=== PATIENT | male | born 1960 | race Caucasian/White ===

== ENCOUNTER 2018-05-06 11:12 | Observation (INO) ==
[2018-05-06] MEDS ORDERED: 0.9 % Sodium Chloride 1,000 ML IVC ONE (11:26)
[2018-05-06] MEDS ORDERED: Ondansetron 4 MG/2 ML VIAL IVP ONE (11:26)
[2018-05-06] MEDS ORDERED: *HR* FentaNYL (PF) 100 MCG/2 ML VIAL IVP ONE (11:29)
--- NOTE | 2018-05-06 11:34 | Emergency Department Note ---
Disposition Clinical Impression: Elevated troponin, Acute kidney injury superimposed on chronic kidney disease, Splenic lesion Abdominal pain Qualifiers: Abdominal location: left lower quadrant Qualified Code(s): R10.32 - Left lower quadrant pain Disposition: Admitted As Inpatient Condition: Fair Referrals: Justina Schwartz CNP [Primary Care Provider] - Forms: ED Satisfaction Letter, Work/School Release Time of Disposition: 14:01 Abdominal Pain HPI - General Chief Complaint: ED Abdominal Pain Stated Complaint: Possible kidney stone Time Seen by Provider: 05/06/18 11:18 Source: patient Mode of arrival: ambulatory Limitations: no limitations Nursing Notes Reviewed: Yes Vital Signs Reviewed: Yes - History of Present Illness HPI Narrative: 58-year-old male with a history of CAD, hypertension, diabetes presents for evaluation of abdominal pain. Patient states he feels that he has a kidney stone. Notes left sided flank pain that started approximately 2:00 this morning. Does not radiate. States that it is worse when he lies down. Also noted some gross hematuria. Denies any dysuria. Denies any fevers. Does note episodes of nausea vomiting earlier this morning related the pain. Patient states that he did not require surgery in the past to help with a stone states he took medication to help break up the stones. Denies any change in bowels or bladder. No chest pain or short of breath. Pain Scale: 10 - Related Data Home Medications Medication Instructions Recorded Confirmed Allopurinol [Zyloprim] 300 mg PO QAM 12/13/14 04/24/15 Aspirin 325 mg PO QAM 12/13/14 04/24/15 Atorvastatin [Lipitor] 40 mg PO HS 12/13/14 04/24/15 Carvedilol [Coreg] 25 mg PO BID 12/13/14 04/24/15 Collagenase Oint [Santyl] 1 appl TP DAILY 12/13/14 04/24/15 Ergocalciferol (VITAMIN D2) 50,000 unit PO QWEEK 12/13/14 04/24/15 [Vitamin D2 (50,000 UNIT)] Insulin Glargine,Hum.rec.anlog 45 unit SQ BID 12/13/14 04/24/15 [Lantus Solostar] Insulin LISPRO [Humalog Kwikpen 20 unit SQ TIDAC 12/13/14 04/24/15 U-200] Lisinopril [Zestril] 10 mg PO QAM 12/13/14 04/24/15 Renal Vitamin [Renal Caps Softgel] 1 mg PO DAILY 04/24/15 04/24/15 Previous Rx's Medication Instructions Recorded OxyCODONE/APAP 5/325 [Percocet 1 each PO Q4HR PRN #25 tablet 02/20/15 5/325 MG] Allergies Allergy/AdvReac Type Severity Reaction Status Date / Time ceftazidime Allergy Hives Verified 12/13/14 10:30 Cephalosporins Allergy Hives Verified 12/13/14 10:30 sulfamethoxazole AdvReac poor Verified 04/24/15 11:21 [From Bactrim] kidney function trimethoprim [From Bactrim] AdvReac poor Verified 04/24/15 11:21 kidney function All systems ED: reviewed and negative except as stated. Constitutional: Denies: fever Cardiovascular: Denies: chest pain Respiratory: Denies: cough, dyspnea Gastrointestinal: Reports: abdominal pain, nausea, vomiting. Denies: diarrhea, constipation Abdominal Pain PMH - Past Medical History Medical history: Reports: arthritis, cardiomyopathy, coronary artery disease, diabetes, hyperlipidemia, hypertension, kidney stones, peripheral artery disease, renal disease, other Male Surgical History: Reports: angioplasty/stent, cataract, coronary bypass (CABG), orthopedic, other, other Psychiatric history: Reports: no psych history - Social History Smoking status: Former smoker Alcohol use: Reports: none Drug use: Reports: none Physical Exam - General Limitations: no limitations General appearance: alert, in no apparent distress, obese - Head Head exam: atraumatic, normocephalic, normal inspection - Eye Eye exam: Present: normal appearance, PERRL, EOMI - ENT ENT exam: normal exam, mucous membranes moist - Neck Neck exam: Present: normal inspection - Chest Chest inspection: Present: normal inspection - Respiratory Respiratory exam: Present: normal lung sounds bilaterally. Absent: respiratory distress - Cardiovascular Cardiovascular exam: Present: regular rate, normal rhythm. Absent: systolic murmur - Abdominal Exam Abdominal exam: Present: soft, tenderness (Left flank no overlying rash) - Extremities Exam Extremities exam: Present: normal inspection. Absent: pedal edema - Back Exam Back exam: Present: normal inspection - Neurological Exam Neurological exam: Present: alert, oriented X3, CN II-XII intact - Skin Skin exam: Present: warm, dry, intact, normal color Course Course Narrative: Patient seen and examined. Patient appears be resting comfortably. Patient does have prior history of kidney stones. Will obtain basic labs given his history of kidney disease in the past. Urinalysis. CT scan abdomen pelvis. Disposition pending. Vital Signs Temperature 97.7 F 05/06/18 11:14 Pulse Rate 82 05/06/18 11:14 Respiratory Rate 22 05/06/18 11:14 Blood Pressure 115/74 05/06/18 11:14 O2 Sat by Pulse Oximetry 98 05/06/18 11:14 Temperature 97.7 F 05/06/18 11:14 Pulse Rate 82 05/06/18 11:14 Respiratory Rate 22 05/06/18 11:14 Blood Pressure 115/74 05/06/18 11:14 O2 Sat by Pulse Oximetry 98 05/06/18 11:14 Oxygen Delivery Oxygen Delivery Room Air Abdominal Pain - MDM Narrative Medical decision making narrative: Patient presented for concerns of left-sided abdominal pain with nausea vomiting patient thought he had a kidney stone however the patient's CT scan does not reveal any evidence of stone. Given the patient's history concerns for ACS equivalent and a troponin EKG and chest x-ray will also obtain. Chest x-ray shows signs of some cardiomegaly. Patient is not any respiratory distress. Patient's troponin came back elevated with no ischemic EKG changes. Patient was given an aspirin. Patient pain was controlled and the ED. Concerns at this laila n presentation may have been ACS equivalent. Patient's kidney function is also noted to be worse than prior values. Patient is continued to produce urine and does not warrant an emergent nephrology consult. Patient will be admitted to the hospital service for continued cardiopulmonary monitoring and likely serial troponins. - Lab Data Lab results reviewed: Yes I reviewed the patient's lab results. Result diagrams: 05/06/18 11:41 05/06/18 11:41 Lab Results 05/06/18 05/06/18 05/06/18 Range/Units 11:41 11:41 11:41 WBC 9.6 (4.3-11.1) K/mcL RBC 5.37 (4.19-5.50) M/mcL Hgb 13.8 (12.9-16.9) g/dL Hct 44.0 (37.5-50.1) % MCV 81.9 L (83.0-100.0) fL MCH 25.7 L (28.0-33.3) pg MCHC 31.4 L (31.6-35.5) g/dL RDW 15.7 H (11.5-14.5) % Plt Count 157 (140-400) K/mcL MPV 11.0 (9.4-12.4) fL Immature Gran % 0.5 (0-4) % Seg Neutrophils % 73.1 % Lymphocytes % 12.3 % Monocytes % 8.5 % Eosinophils % 4.8 % Basophils % 0.8 % Neutrophils # 7.0 (1.6-8.9) K/mcL Lymphocytes # 1.2 (0.6-4.6) K/mcL Monocytes # 0.8 (0.0-1.3) K/mcL Eosinophils # 0.5 (0.0-0.6) K/mcL Basophils # 0.1 (0.0-0.2) K/mcL Sodium 139 (136-145) mEq/L Potassium 5.3 H (3.5-5.1) mEq/L Chloride 106 (98-107) mEq/L Carbon Dioxide 23 (23-29) mEq/L BUN 90 H (6-20) mg/dL Creatinine 3.04 H (0.70-1.30) mg/dL Est GFR ( Amer) 26 L (> 60) Est GFR (Non-Af Amer) 21 L (> 60) BUN/Creatinine Ratio 30 H (6-26) Glucose 172 H (70-105) mg/dL Calculated Osmolality 320 H (280-300) Calcium 9.3 (8.6-10.3) mg/dL Total Bilirubin 0.5 (0.3-1.0) mg/dL Direct Bilirubin 0.1 (0.0-0.2) mg/dL Indirect Bilirubin 0.4 (0.0-1.2) mg/dL AST 11 L (13-39) Units/L ALT 13 (7-52) Units/L Alkaline Phosphatase 100 (34-104) Units/L Troponin I 0.05 H* (< 0.04) ng/mL B-Natriuretic Peptide 316 H (Less than 100) pg/mL Serum Total Protein 6.5 (6.4-8.9) g/dL Albumin 3.5 (3.5-5.7) g/dL Globulin 3.0 (2.4-3.5) g/dL Albumin/Globulin Ratio 1.2 (1.1-2.2) Lipase 45 (11-82) Units/L Urine Color (Yellow) Urine Clarity (Clear) Urine pH (5.0-8.0) pH Units Ur Specific [place] (1.010-1.025) Urine Protein (Neg-Trace) mg/dL Urine Glucose (UA) (Normal) mg/dL Urine Ketones (Negative) mg/dL Urine Blood (Negative) Urine Nitrite (Negative) Urine Bilirubin (Negative) Urine Urobilinogen (Normal) mg/dL Ur Leukocyte Esterase (Negative) Urine Microscopic RBC (0-3) per hpf Urine Microscopic WBC (0-3) per hpf Ur Squamous Epith Cells (None-Few) per lpf Urine Bacteria (None-Few) per hpf Hyaline Casts (None-Few) per lpf Ur Culture Indicated? (NO) 05/06/18 Range/Units 11:53 WBC (4.3-11.1) K/mcL RBC (4.19-5.50) M/mcL Hgb (12.9-16.9) g/dL Hct (37.5-50.1) % MCV (83.0-100.0) fL MCH (28.0-33.3) pg MCHC (31.6-35.5) g/dL RDW (11.5-14.5) % Plt Count (140-400) K/mcL MPV (9.4-12.4) fL Immature Gran % (0-4) % Seg Neutrophils % % Lymphocytes % % Monocytes % % Eosinophils % % Basophils % % Neutrophils # (1.6-8.9) K/mcL Lymphocytes # (0.6-4.6) K/mcL Monocytes # (0.0-1.3) K/mcL Eosinophils # (0.0-0.6) K/mcL Basophils # (0.0-0.2) K/mcL Sodium (136-145) mEq/L Potassium (3.5-5.1) mEq/L Chloride (98-107) mEq/L Carbon Dioxide (23-29) mEq/L BUN (6-20) mg/dL Creatinine (0.70-1.30) mg/dL Est GFR ( Amer) (> 60) Est GFR (Non-Af Amer) (> 60) BUN/Creatinine Ratio (6-26) Glucose (70-105) mg/dL Calculated Osmolality (280-300) Calcium (8.6-10.3) mg/dL Total Bilirubin (0.3-1.0) mg/dL Direct Bilirubin (0.0-0.2) mg/dL Indirect Bilirubin (0.0-1.2) mg/dL AST (13-39) Units/L ALT (7-52) Units/L Alkaline Phosphatase (34-104) Units/L Troponin I (< 0.04) ng/mL B-Natriuretic Peptide (Less than 100) pg/mL Serum Total Protein (6.4-8.9) g/dL Albumin (3.5-5.7) g/dL Globulin (2.4-3.5) g/dL Albumin/Globulin Ratio (1.1-2.2) Lipase (11-82) Units/L Urine Color Yellow (Yellow) Urine Clarity Clear (Clear) Urine pH 5.5 (5.0-8.0) pH Units Ur Specific [place] 1.015 (1.010-1.025) Urine Protein >=300 H (Neg-Trace) mg/dL Urine Glucose (UA) 250 H (Normal) mg/dL Urine Ketones Negative (Negative) mg/dL Urine Blood Trace H (Negative) Urine Nitrite Negative (Negative) Urine Bilirubin Negative (Negative) Urine Urobilinogen Normal (Normal) mg/dL Ur Leukocyte Esterase Negative (Negative) Urine Microscopic RBC 3-5 H (0-3) per hpf Urine Microscopic WBC 3-5 H (0-3) per hpf Ur Squamous Epith Cells Moderate H (None-Few) per lpf Urine Bacteria None Seen (None-Few) per hpf Hyaline Casts None Seen (None-Few) per lpf Ur Culture Indicated? NO (NO) - Radiology Data Radiology results reviewed: Yes I reviewed the patient's radiology results. Abdomen/Pelvis CT 05/06/18 11:28 IMPRESSION: 1. 4.7 cm indeterminate splenic lesion. Recommend further evaluation with nonemergent MRI of the abdomen with and without contrast. D/ / Hayder Holloway MD / Hayder Holloway MD Interpreting Provider: Hayder Holloway MD Chest X-Ray 05/06/18 12:35 IMPRESSION: 1. No acute abnormality. D/ / Hayder Holloway MD / Hayder Holloway MD Interpreting Provider: Hayder Holloway MD - EKG Data EKG attestation: Yes I reviewed and interpreted this EKG. EKG shows normal: sinus rhythm Rate: normal Rhythm: NSR [place]/QRS: normal T wave inversions noted in: aVL, aVR Interpretation: no acute changes, nonspecific ST-T wave changes S.Michael - S.TyAAmrit Situation: Demographics Background: Presenting Complaint Assessment: Vital Signs, Course and respsone to treatment, Patient/Family Expectation Recommendation: Barrier(s) to disposition, Recommendation based on pending studies, treatments, or consults S.B.A.RChanell Report Given to: Hospitalist Cary Repor Time: 13:59
[2018-05-06 11:59] LABS: Basophils # 0.1 K/mcL (0.0-0.2); Basophils % 0.8 %; Eosinophils # 0.5 K/mcL (0.0-0.6); Eosinophils % 4.8 %; Hemoglobin 13.8 g/dL (12.9-16.9); Immature Granulocytes % 0.5 % (0-4); Lymphocytes # 1.2 K/mcL (0.6-4.6); Lymphocytes % 12.3 %; Mean Corpuscular HGB Conc 31.4 g/dL (31.6-35.5); Mean Corpuscular Hemoglobin 25.7 pg (28.0-33.3); Mean Corpuscular Volume 81.9 fL (83.0-100.0); Monocytes # 0.8 K/mcL (0.0-1.3); Monocytes % 8.5 %; Platelet Count 157 K/mcL (140-400); Red Blood Count 5.37 M/mcL (4.19-5.50); Red Cell Distribution Width 15.7 % (11.5-14.5); Segmented Neutrophils % 73.1 %
[2018-05-06 12:17] LABS: Albumin 3.5 g/dL (3.5-5.7); Albumin/Globulin Ratio 1.2 (1.1-2.2); Bilirubin,Direct 0.1 mg/dL (0.0-0.2); Bilirubin,Indirect 0.4 mg/dL (0.0-1.2); Bilirubin,Total 0.5 mg/dL (0.3-1.0); Calcium 9.3 mg/dL (8.6-10.3); Potassium 5.3 mEq/L (3.5-5.1); Total Protein 6.5 g/dL (6.4-8.9)
[2018-05-06] MEDS ORDERED: Aspirin 325 MG TABLET PO ONE (12:23)
[2018-05-06 12:27] LABS: Bilirubin,Urine Negative (Negative); Blood,Urine Trace (Negative); Clarity,Urine Clear (Clear); Color,Urine Yellow (Yellow); Glucose,Urine (UA) 250 mg/dL (Normal); Ketones,Urine Negative (Negative); Leukocyte Esterase,Urine Negative (Negative); Nitrite,Urine Negative (Negative); PH,Urine 5.5 pH Units (5.0-8.0); Protein,Urine >=300 mg/dL (Neg-Trace); Specific Gravity,Urine 1.015 (1.010-1.025); Urobilinogen,Urine Normal (Normal)
[2018-05-06 12:29] LABS: Bacteria,Urine None Seen per hpf (None-Few); Hyaline Casts,Urine None Seen per lpf (None-Few); Squamous Epithelial Cell,Urine Moderate per lpf (None-Few)
[2018-05-06 13:27] LABS: Troponin I 0.05 ng/mL (< 0.04)
[2018-05-06] MEDS ORDERED: Nitroglycerin 0.4 MG TAB.SUBL SL PRN (13:54)
[2018-05-06] MEDS ORDERED: D5% in Water 1,000 ML IVC PRN (14:20)
[2018-05-06] MEDS ORDERED: *HR* Dextrose 50 % in Water (Syg) 50 ML SYRINGE IVP PRN (14:20)
[2018-05-06] MEDS ORDERED: Dextrose Gel 15 GM/37.5 ML TUBE PO PRN ×2 (14:20)
[2018-05-06] MEDS ORDERED: Ondansetron 4 MG/2 ML VIAL IVP PRN (14:20)
--- NOTE | 2018-05-06 14:34 | Emergency Department Note ---
Disposition Clinical Impression: Elevated troponin, Acute kidney injury superimposed on chronic kidney disease, Splenic lesion Abdominal pain Qualifiers: Abdominal location: left lower quadrant Qualified Code(s): R10.32 - Left lower quadrant pain Disposition: Admitted As Inpatient Condition: Fair Referrals: Justina Schwartz CNP [Primary Care Provider] - Forms: ED Satisfaction Letter, Work/School Release General Adult HPI - General Chief complaint: ED Abdominal Pain Stated complaint: Possible kidney stone Time Seen by Provider: 05/06/18 11:18 Source: patient Mode of arrival: ambulatory Limitations: no limitations - History of Present Illness Pain Scale: 10 - Related Data Home Medications Medication Instructions Recorded Confirmed Allopurinol [Zyloprim] 300 mg PO QAM 12/13/14 04/24/15 Aspirin 325 mg PO QAM 12/13/14 04/24/15 Atorvastatin [Lipitor] 40 mg PO HS 12/13/14 04/24/15 Carvedilol [Coreg] 25 mg PO BID 12/13/14 04/24/15 Collagenase Oint [Santyl] 1 appl TP DAILY 12/13/14 04/24/15 Ergocalciferol (VITAMIN D2) 50,000 unit PO QWEEK 12/13/14 04/24/15 [Vitamin D2 (50,000 UNIT)] Insulin Glargine,Hum.rec.anlog 45 unit SQ BID 12/13/14 04/24/15 [Lantus Solostar] Insulin LISPRO [Humalog Kwikpen 20 unit SQ TIDAC 12/13/14 04/24/15 U-200] Lisinopril [Zestril] 10 mg PO QAM 12/13/14 04/24/15 Renal Vitamin [Renal Caps Softgel] 1 mg PO DAILY 04/24/15 04/24/15 Previous Rx's Medication Instructions Recorded OxyCODONE/APAP 5/325 [Percocet 1 each PO Q4HR PRN #25 tablet 02/20/15 5/325 MG] Allergies Allergy/AdvReac Type Severity Reaction Status Date / Time ceftazidime Allergy Hives Verified 12/13/14 10:30 Cephalosporins Allergy Hives Verified 12/13/14 10:30 sulfamethoxazole AdvReac poor Verified 04/24/15 11:21 [From Bactrim] kidney function trimethoprim [From Bactrim] AdvReac poor Verified 04/24/15 11:21 kidney function Constitutional: Denies: fever Cardiovascular: Denies: chest pain Respiratory: Denies: cough, dyspnea Gastrointestinal: Reports: abdominal pain, nausea, vomiting. Denies: diarrhea, constipation Past Medical History - Past Medical History Medical history: Reports: arthritis, cardiomyopathy, coronary artery disease, diabetes, hyperlipidemia, hypertension, kidney stones, peripheral artery disease, renal disease, other Surgical history: Reports: angioplasty/stent, cataract, coronary bypass (CABG), other Psychiatric history: Reports: no psych history - Social History Smoking Status: Former smoker Smokeless Tobacco Status: No Alcohol use: Reports: none Drug use: Reports: none Physical Exam - General Limitations: no limitations General appearance: alert, in no apparent distress, obese Course Vital Signs Temperature 97.7 F 05/06/18 11:14 Pulse Rate 82 05/06/18 11:14 Respiratory Rate 22 05/06/18 11:14 Blood Pressure 115/74 05/06/18 11:14 O2 Sat by Pulse Oximetry 98 05/06/18 11:14 Temperature 97.7 F 05/06/18 11:14 Pulse Rate 82 05/06/18 11:14 Respiratory Rate 22 05/06/18 11:14 Blood Pressure 115/74 05/06/18 11:14 O2 Sat by Pulse Oximetry 98 05/06/18 11:14 Oxygen Delivery Oxygen Delivery Room Air Medical Decision Making - Lab Data Result diagrams: 05/06/18 11:41 05/06/18 11:41 Lab Results 05/06/18 05/06/18 05/06/18 Range/Units 11:41 11:41 11:41 WBC 9.6 (4.3-11.1) K/mcL RBC 5.37 (4.19-5.50) M/mcL Hgb 13.8 (12.9-16.9) g/dL Hct 44.0 (37.5-50.1) % MCV 81.9 L (83.0-100.0) fL MCH 25.7 L (28.0-33.3) pg MCHC 31.4 L (31.6-35.5) g/dL RDW 15.7 H (11.5-14.5) % Plt Count 157 (140-400) K/mcL MPV 11.0 (9.4-12.4) fL Immature Gran % 0.5 (0-4) % Seg Neutrophils % 73.1 % Lymphocytes % 12.3 % Monocytes % 8.5 % Eosinophils % 4.8 % Basophils % 0.8 % Neutrophils # 7.0 (1.6-8.9) K/mcL Lymphocytes # 1.2 (0.6-4.6) K/mcL Monocytes # 0.8 (0.0-1.3) K/mcL Eosinophils # 0.5 (0.0-0.6) K/mcL Basophils # 0.1 (0.0-0.2) K/mcL Sodium 139 (136-145) mEq/L Potassium 5.3 H (3.5-5.1) mEq/L Chloride 106 (98-107) mEq/L Carbon Dioxide 23 (23-29) mEq/L BUN 90 H (6-20) mg/dL Creatinine 3.04 H (0.70-1.30) mg/dL Est GFR ( Amer) 26 L (> 60) Est GFR (Non-Af Amer) 21 L (> 60) BUN/Creatinine Ratio 30 H (6-26) Glucose 172 H (70-105) mg/dL Calculated Osmolality 320 H (280-300) Calcium 9.3 (8.6-10.3) mg/dL Total Bilirubin 0.5 (0.3-1.0) mg/dL Direct Bilirubin 0.1 (0.0-0.2) mg/dL Indirect Bilirubin 0.4 (0.0-1.2) mg/dL AST 11 L (13-39) Units/L ALT 13 (7-52) Units/L Alkaline Phosphatase 100 (34-104) Units/L Troponin I 0.05 H* (< 0.04) ng/mL B-Natriuretic Peptide 316 H (Less than 100) pg/mL Serum Total Protein 6.5 (6.4-8.9) g/dL Albumin 3.5 (3.5-5.7) g/dL Globulin 3.0 (2.4-3.5) g/dL Albumin/Globulin Ratio 1.2 (1.1-2.2) Lipase 45 (11-82) Units/L Urine Color (Yellow) Urine Clarity (Clear) Urine pH (5.0-8.0) pH Units Ur Specific [place] (1.010-1.025) Urine Protein (Neg-Trace) mg/dL Urine Glucose (UA) (Normal) mg/dL Urine Ketones (Negative) mg/dL Urine Blood (Negative) Urine Nitrite (Negative) Urine Bilirubin (Negative) Urine Urobilinogen (Normal) mg/dL Ur Leukocyte Esterase (Negative) Urine Microscopic RBC (0-3) per hpf Urine Microscopic WBC (0-3) per hpf Ur Squamous Epith Cells (None-Few) per lpf Urine Bacteria (None-Few) per hpf Hyaline Casts (None-Few) per lpf Ur Culture Indicated? (NO) 05/06/18 Range/Units 11:53 WBC (4.3-11.1) K/mcL RBC (4.19-5.50) M/mcL Hgb (12.9-16.9) g/dL Hct (37.5-50.1) % MCV (83.0-100.0) fL MCH (28.0-33.3) pg MCHC (31.6-35.5) g/dL RDW (11.5-14.5) % Plt Count (140-400) K/mcL MPV (9.4-12.4) fL Immature Gran % (0-4) % Seg Neutrophils % % Lymphocytes % % Monocytes % % Eosinophils % % Basophils % % Neutrophils # (1.6-8.9) K/mcL Lymphocytes # (0.6-4.6) K/mcL Monocytes # (0.0-1.3) K/mcL Eosinophils # (0.0-0.6) K/mcL Basophils # (0.0-0.2) K/mcL Sodium (136-145) mEq/L Potassium (3.5-5.1) mEq/L Chloride (98-107) mEq/L Carbon Dioxide (23-29) mEq/L BUN (6-20) mg/dL Creatinine (0.70-1.30) mg/dL Est GFR ( Amer) (> 60) Est GFR (Non-Af Amer) (> 60) BUN/Creatinine Ratio (6-26) Glucose (70-105) mg/dL Calculated Osmolality (280-300) Calcium (8.6-10.3) mg/dL Total Bilirubin (0.3-1.0) mg/dL Direct Bilirubin (0.0-0.2) mg/dL Indirect Bilirubin (0.0-1.2) mg/dL AST (13-39) Units/L ALT (7-52) Units/L Alkaline Phosphatase (34-104) Units/L Troponin I (< 0.04) ng/mL B-Natriuretic Peptide (Less than 100) pg/mL Serum Total Protein (6.4-8.9) g/dL Albumin (3.5-5.7) g/dL Globulin (2.4-3.5) g/dL Albumin/Globulin Ratio (1.1-2.2) Lipase (11-82) Units/L Urine Color Yellow (Yellow) Urine Clarity Clear (Clear) Urine pH 5.5 (5.0-8.0) pH Units Ur Specific [place] 1.015 (1.010-1.025) Urine Protein >=300 H (Neg-Trace) mg/dL Urine Glucose (UA) 250 H (Normal) mg/dL Urine Ketones Negative (Negative) mg/dL Urine Blood Trace H (Negative) Urine Nitrite Negative (Negative) Urine Bilirubin Negative (Negative) Urine Urobilinogen Normal (Normal) mg/dL Ur Leukocyte Esterase Negative (Negative) Urine Microscopic RBC 3-5 H (0-3) per hpf Urine Microscopic WBC 3-5 H (0-3) per hpf Ur Squamous Epith Cells Moderate H (None-Few) per lpf Urine Bacteria None Seen (None-Few) per hpf Hyaline Casts None Seen (None-Few) per lpf Ur Culture Indicated? NO (NO) Attestation Statement - Attestation Attestation: I examined this patient and my medical decision-making was reviewed with the Resident Physician. I agree with the documented findings, disposition and treatment plan as described except to the extent set forth below. 58 year old male presnts ot the ED with complanits of left flank and chest pain and it appears that his troponin has elevated with woresning crn from his baseline from his chronic renal failure and is also hyperkalemic. Patine appears to have a splenic lesion but we are more concerned about he cardiac compononet of his chest pain. We will admit ot medicine.
--- NOTE | 2018-05-06 14:52 | Internal Med History&Physical ---
<Rikki Rivas Juan - Last Filed: 05/06/18 15:31> Date of Encounter: 05/06/18 Time of Encounter: 14:47 Internal Medicine - H&P: HPI Chief complaint: Left sided abdominal pain Admitted From: Emergency Dept History of present illness: Mr. Everett is a 58 year old male with a history of CAD, HTN, diabetes mellitus who presents for evaluation of left sided abdominal pain. Patient states he went to urgent care with the belief he has a kideny stone. Patient states the pain started this morning at 2:00 a.m. Patient describes the pain as constant and throbbing. Patient states the pain woke him from sleep. The pain does not radiate from the left abdominal area. Patient states the pain is worsened by lying down. Patient states nothing helps the pain Past Med Surg Social Fam HX - Past Medical History Medical history: arthritis, cardiomyopathy, coronary artery disease, diabetes, hyperlipidemia, hypertension, kidney stones, peripheral artery disease, renal disease, other Additional medical history: polyneuropathy. gout. renal failure. CHF Psychiatric history: no psych history - Past Surgical History Surgical History: angioplasty/stent, cataract, coronary bypass (CABG), other Additional surgical history: 2 cardiac stents. foot - Social History Smoking Status: Former smoker Smokeless Tobacco Status: No Alcohol use: none Drug use: none Occupational status: disabled - Family History Father Adopted: No Living Status: Hx Family Cardiac Disorders: Yes Hx Family Respiratory Disorders: No Hx Family Cancer: No Hx Family GI Disorders: No Hx Family Endocrine Disorder: Yes Hx Family Neuromuscular Disorders: No Hx Family Neurologic Disorders: No Hx Family HEENT Disorders: No Hx Family Autoimmune Disorders: No Mother Living Status: Hx Family Cardiac Disorders: Yes Hx Family Respiratory Disorders: Yes Hx Family Endocrine Disorder: Yes Internal Medicine - H&P: Meds Allopurinol [Zyloprim] 300 mg PO QAM 12/13/14 [History] Aspirin 325 mg PO QAM 12/13/14 [History] Atorvastatin [Lipitor] 40 mg PO HS 12/13/14 [History] Carvedilol [Coreg] 25 mg PO BID 12/13/14 [History] Collagenase Oint [Santyl] 1 appl TP DAILY 12/13/14 [History] Ergocalciferol (VITAMIN D2) [Vitamin D2 (50,000 UNIT)] 50,000 unit PO QWEEK 12/13/14 [History] Insulin Glargine,Hum.rec.anlog [Lantus Solostar] 45 unit SQ BID 12/13/14 [History] Insulin LISPRO [Humalog Kwikpen U-200] 20 unit SQ TIDAC 12/13/14 [History] Lisinopril [Zestril] 10 mg PO QAM 12/13/14 [History] OxyCODONE/APAP 5/325 [Percocet 5/325 MG] 1 each PO Q4HR PRN #25 tablet 02/20/15 [Rx] Renal Vitamin [Renal Caps Softgel] 1 mg PO DAILY 04/24/15 [History] Allergy/AdvReac Type Severity Reaction Status Date / Time ceftazidime Allergy Hives Verified 12/13/14 10:30 Cephalosporins Allergy Hives Verified 12/13/14 10:30 sulfamethoxazole AdvReac poor Verified 04/24/15 11:21 [From Bactrim] kidney function trimethoprim [From Bactrim] AdvReac poor Verified 04/24/15 11:21 kidney function All Systems PM: A 10-system review of systems was performed and is negative for pertinent findings except as documented above in the HPI. - Constitutional Constitutional: no chills, no fever(s), no night sweats, no weight gain, no weight loss - EENT Eyes: itchy eyes Additional comments: left eye red. Patient states stays like that after cataract surgery Ears: no ear discharge, no ear pain - Cardiovascular Cardiovascular ROS IM: edema, no chest pain, no dyspnea, no dyspnea on exertion, no lightheadedness - Respiratory Respiratory: no dyspnea, no hemoptysis, no dyspnea on exertion, no wheezing - Gastrointestinal Gastrointestinal: abdominal pain, no change in bowel habits, no change in stool character, no nausea, no vomiting Additional comments: left sided - Genitourinary Genitourinary ROS male: no difficulty urinating, no dysuria, no hematuria, no post void dribbling, no urinary frequency, no urinary urgency - Musculoskeletal Musculoskeletal ROS IM: no arthralgias, no myalgias - Integumentary Integumentary IM: no pruritus, no rash - Neurological Neurological ROS: no dizziness, no headache(s), no weakness - Psychiatric Psychiatric: no change in appetite - Constitutional Vitals: Temp Pulse Resp BP Pulse Ox 97.7 F 82 22 115/74 98 05/06/18 11:14 05/06/18 11:14 05/06/18 11:14 05/06/18 11:14 05/06/18 11:14 General appearance: Present: mild distress, A&O X 3, morbidly obese, pleasant, answers questions appropriately Exam: awake - Head Head exam: Present: atraumatic, normal inspection, normocephalic - Eye Eye exam: Present: EOMI, normal appearance, PERRL. Absent: scleral icterus Pupils: Present: PERRL - ENT ENT exam: Present: mucous membranes dry - Neck Neck exam general surgery: Present: supple, trachea midline. Absent: tenderness - Respiratory Respiratory exam: Present: CTAB. Absent: accessory muscle use, respiratory distress, rhonchi, wheezes - Cardiovascular Cardiovascular exam: Present: RRR, +S1, +S2. Absent: gallop, irregular rhythm, rubs, tachycardia - GI/Abdominal GI/Abdominal exam: Present: normal bowel sounds, soft. Absent: bruit, distended, firm, pulsatile mass, rebound, tenderness - Extremities Exam Extremities exam: Present: pedal edema (+1, venous stasis changes), warm, radial pulses palpable and symmetrical - Back Exam Back exam: Absent: CVA tenderness (L), CVA tenderness (R) - Neurological Exam Neurological exam: Present: alert, oriented X3, strengths equal and symetr throughout. Absent: facial droop, speech deficit - Psychiatric Psychiatric exam: Present: normal affect, normal mood - Skin Skin exam: Present: dry, intact, warm (venous stasis changes B/L lower extremities) Internal Med - H&P Results - Labs CBC & Chem 7: 05/06/18 11:41 05/06/18 11:41 Labs: Short CBC 05/06/18 Range/Units 11:41 WBC 9.6 (4.3-11.1) K/mcL Hgb 13.8 (12.9-16.9) g/dL Hct 44.0 (37.5-50.1) % Plt Count 157 (140-400) K/mcL Neutrophils # 7.0 (1.6-8.9) K/mcL BMP 05/06/18 11:41 Sodium 139 Potassium 5.3 H Chloride 106 Carbon Dioxide 23 BUN 90 H Creatinine 3.04 H Glucose 172 H Calcium 9.3 Cardiac Enzymes 05/06/18 Range/Units 11:41 Troponin I 0.05 H* (< 0.04) ng/mL Liver Function 05/06/18 Range/Units 11:41 Total Bilirubin 0.5 (0.3-1.0) mg/dL Direct Bilirubin 0.1 (0.0-0.2) mg/dL AST 11 L (13-39) Units/L ALT 13 (7-52) Units/L Alkaline Phosphatase 100 (34-104) Units/L Albumin 3.5 (3.5-5.7) g/dL Urine 05/06/18 Range/Units 11:53 Urine Color Yellow (Yellow) Urine Clarity Clear (Clear) Urine pH 5.5 (5.0-8.0) pH Units Ur Specific [place] 1.015 (1.010-1.025) Urine Protein >=300 H (Neg-Trace) mg/dL Urine Glucose (UA) 250 H (Normal) mg/dL - EKG Data -: EKG Interpreted by Myself EKG shows normal: sinus rhythm, intervals, QRS complexes (possibe old anterior infarct unchanged from previous EKG) Rate: normal - Impressions ITS Impressions Abdomen/Pelvis CT 05/06/18 11:28 IMPRESSION: 1. 4.7 cm indeterminate splenic lesion. Recommend further evaluation with nonemergent MRI of the abdomen with and without contrast. D/ / Hayder Holloway MD / Hayder Holloway MD Interpreting Provider: Hayder Holloway MD Chest X-Ray 05/06/18 12:35 IMPRESSION: 1. No acute abnormality. D/ / Hayder Holloway MD / Hayder Holloway MD Interpreting Provider: Hayder Holloway MD - Assessment and plan (1) Abdominal pain Current Visit: Yes Status: Acute Assessment and plan: CT/CT abd pelvis wo no iv no oral IMPRESSION: 4.7 cm indeterminate splenic lesion. Recommend further evaluation with nonemergent MRI of the abdomen with and without contrast -Continue monitoring and continue PRN pain medications. Qualifiers: Abdominal location: left lower quadrant Qualified Code(s): R10.32 - Left lower quadrant pain (2) Acute kidney injury superimposed on chronic kidney disease Current Visit: Yes Status: Acute Assessment and plan: -ROMARIO likely due to CKD and home KAUSHIK-I use. -Hold lisinopril -Patient given IV fluids in ED -continue NS at 100cc per hour continue monitoring and avoid nephrotoxic medications (3) Elevated troponin Current Visit: Yes Status: Acute Assessment and plan: initial troponin 0.05, no chest pain, likely due to CKD stage 4. -New line echo pending to rule out wall motion abnormalities -EKG shows no signs of ischemia -Continue trending serial troponins (4) CAD (coronary artery disease) Current Visit: No Status: Chronic Assessment and plan: previous CABG Continue home aspirin and statin and statin dose increased from 40mg to 80 mg Qualifiers: Coronary Disease-Associated Artery/Lesion type: [place] artery [place] vs. transplanted heart: [place] heart Associated angina: angina presence unspecified Qualified Code(s): I25.10 - Atherosclerotic heart disease of [place] coronary artery without angina pectoris (5) CKD stage 4 due to type 2 diabetes mellitus Current Visit: No Status: Chronic Assessment and plan: Patient was previously on dialysis 2 years ago Nephro diet Patient follows with nephro as outpatient If renal function worsens consult nephrology (6) DM type 2 (diabetes mellitus, type 2) Current Visit: No Status: Chronic Assessment and plan: 01/25/2018 A1c of 9.5 Administer sliding scale insulin and basal insulin ACHS blood glucose monitoring before and after meals Qualifiers: Diabetes mellitus complication status: with circulatory complication Diabetes mellitus complication detail: with other circulatory complications Qualified Code(s): E11.59 - Type 2 diabetes mellitus with other circulatory complications (7) History of coronary artery bypass graft Current Visit: No Status: Chronic (8) Morbid obesity with BMI of 45.0-49.9, adult Current Visit: Yes Status: Acute Assessment and plan: lifestyle modifications BMI 48.6 (9) Obstructive sleep apnea Current Visit: Yes Status: Chronic Assessment and plan: Use BI-PAP when sleeping (10) DVT prophylaxis Current Visit: No Status: Acute Assessment and plan: Heparin subQ 5,000 units Q8HR - Time Spent With Patient Total time spent is greater than 50% in coordination of care (as documented) at patient's floor/unit and/or counseling patient: <Sam Singletary - Last Filed: 05/06/18 18:15> Date of Encounter: 05/06/18 Internal Medicine - H&P: HPI History of present illness: Mr. Everett is a 58 year old male All Systems PM: A 10-system review of systems was performed and is negative for pertinent findings except as documented above in the HPI. - Constitutional Vitals: Temp Pulse Resp BP Pulse Ox 97.5 F L 77 17 149/71 93 05/06/18 15:28 05/06/18 15:28 05/06/18 15:28 05/06/18 15:28 05/06/18 15:28 Internal Med - H&P Results - Labs CBC & Chem 7: 05/06/18 11:41 05/06/18 11:41 Labs: Short CBC 05/06/18 Range/Units 11:41 WBC 9.6 (4.3-11.1) K/mcL Hgb 13.8 (12.9-16.9) g/dL Hct 44.0 (37.5-50.1) % Plt Count 157 (140-400) K/mcL Neutrophils # 7.0 (1.6-8.9) K/mcL BMP 05/06/18 11:41 Sodium 139 Potassium 5.3 H Chloride 106 Carbon Dioxide 23 BUN 90 H Creatinine 3.04 H Glucose 172 H Calcium 9.3 Cardiac Enzymes 05/06/18 Range/Units 11:41 Troponin I 0.05 H* (< 0.04) ng/mL Liver Function 05/06/18 Range/Units 11:41 Total Bilirubin 0.5 (0.3-1.0) mg/dL Direct Bilirubin 0.1 (0.0-0.2) mg/dL AST 11 L (13-39) Units/L ALT 13 (7-52) Units/L Alkaline Phosphatase 100 (34-104) Units/L Albumin 3.5 (3.5-5.7) g/dL Urine 05/06/18 Range/Units 11:53 Urine Color Yellow (Yellow) Urine Clarity Clear (Clear) Urine pH 5.5 (5.0-8.0) pH Units Ur Specific [place] 1.015 (1.010-1.025) Urine Protein >=300 H (Neg-Trace) mg/dL Urine Glucose (UA) 250 H (Normal) mg/dL - Impressions ITS Impressions Abdomen/Pelvis CT 05/06/18 11:28 IMPRESSION: 1. 4.7 cm indeterminate splenic lesion. Recommend further evaluation with nonemergent MRI of the abdomen with and without contrast. D/ / Hayder Holloway MD / Hayder Holloway MD Interpreting Provider: Hayder Holloway MD Chest X-Ray 05/06/18 12:35 IMPRESSION: 1. No acute abnormality. D/ / Hayder Holloway MD / Hayder Holloway MD Interpreting Provider: Hayder Holloway MD - Assessment and plan (1) Abdominal pain Current Visit: Yes Status: Acute Qualifiers: Abdominal location: left lower quadrant Qualified Code(s): R10.32 - Left lower quadrant pain (2) Acute renal failure Current Visit: Yes Status: Acute Qualifiers: Acute renal failure type: unspecified Qualified Code(s): N17.9 - Acute kidney failure, unspecified (3) CKD stage 4 due to type 2 diabetes mellitus Current Visit: Yes Status: Chronic (4) Nonischemic cardiomyopathy Current Visit: No Status: Chronic (5) Splenic lesion Current Visit: Yes Status: Acute (6) Morbid obesity with BMI of 45.0-49.9, adult Current Visit: Yes Status: Chronic (7) Obstructive sleep apnea Current Visit: Yes Status: Chronic (8) Peripheral vascular disease Current Visit: No Status: Chronic (9) CAD (coronary artery disease) Current Visit: No Status: Chronic Qualifiers: Coronary Disease-Associated Artery/Lesion type: [place] artery [place] vs. transplanted heart: [place] heart Associated angina: without angina Qualified Code(s): I25.10 - Atherosclerotic heart disease of [place] coronary artery without angina pectoris - Time Spent With Patient Total time spent is greater than 50% in coordination of care (as documented) at patient's floor/unit and/or counseling patient: - Attending Attestation The history, physical exam, and medical decision making was performed by the medical student either while I was physically present and actively involved or I personally re-performed the exam and medical decision making. I have verified the accuracy of the medical student's documentation with regards to the history, physical exam findings, and medical decision making on 05/06/18. Mr Everett is 58 y/o male with hx of CKD, DM and HTN presented to ED with L side pain. Pain was L lateral chest wall. Has resolved with meds in ED. No chest pain or worsening dyspnea. No nausea, vomiting or diarrhea. No fever or chills. Has had this pain before but not as bad as this. In ED was evaluated with negative workup so far except mildly elevated troponin. His renal function is worse as well. He is being placed in observation for further work up and treatment. Exam alert Comfortable at this time. Normocephalic Mucus membranes dry Heart distant - regular it appears. Not tachycardic. Lungs diminished but clear Abd obese. Soft. Does not appear tender. No pain on L chest wall Edema present. No rash Moves all extremities equally. Pulses palpable. Chronic venous stasis changes. I/P 1. L side pain - doubt cardiac though mild increase in troponin and has prior hx of CAD. Cycle troponin. Follow overnight. No acute EKG changes at this time. 2. ROMARIO on CKD - appears to have component of prerenal - cautious fluids overnight and recheck in AM 3. Chronic systolic CHF - hold Lasix today. 4. DM - follow sugars and cover 5. CAD Further diagnoses and plan as above.
[2018-05-06] MEDS ORDERED: traMADol 50 MG TABLET PO PRN (16:07)
[2018-05-06] MEDS ORDERED: *HR* HYDROcodone/Acet 5/325 mg TABLET PO PRN (16:07)
[2018-05-06] MEDS ORDERED: Acetaminophen 325 MG TABLET PO PRN (16:07)
[2018-05-06] MEDS: Insulin LISPRO 300 UNITS/3 ML VIAL SQ SCH ×2 (16:46→21:16)
[2018-05-06] MEDS: 0.9 % Sodium Chloride 1,000 ML IVC SCH (16:47)
[2018-05-06] MEDS ORDERED: Perflutren Lipid Microsphere 1.3 ML in 0.9 % Sodium Chloride 8.7 ML IVP ONE (18:53)
[2018-05-06] MEDS: Insulin DETEMIR 100 UNIT/ML X5UNITS SQ SCH (21:16)
[2018-05-06] MEDS: *HR* Heparin 5,000 UNIT/ML VIAL SQ SCH (21:16)
[2018-05-07 00:37] LABS: Basophils # 0.1 K/mcL (0.0-0.2); Basophils % 0.6 %; Eosinophils # 0.4 K/mcL (0.0-0.6); Eosinophils % 5.1 %; Hematocrit 42.3 % (37.5-50.1); Hemoglobin 12.8 g/dL (12.9-16.9); Immature Granulocytes % 0.5 % (0-4); Lymphocytes # 1.1 K/mcL (0.6-4.6); Lymphocytes % 13.9 %; Mean Corpuscular HGB Conc 30.3 g/dL (31.6-35.5); Mean Corpuscular Volume 82.8 fL (83.0-100.0); Mean Platelet Volume 10.8 fL (9.4-12.4); Monocytes # 0.8 K/mcL (0.0-1.3); Monocytes % 10.4 %; Neutrophils # 5.6 K/mcL (1.6-8.9); Platelet Count 136 K/mcL (140-400); Red Blood Count 5.11 M/mcL (4.19-5.50); Red Cell Distribution Width 15.5 % (11.5-14.5); Segmented Neutrophils % 69.5 %
[2018-05-07 00:42] LABS: Prothrombin Time 11.1 Seconds (9.4-12.1)
[2018-05-07 00:51] LABS: Magnesium 1.8 mg/dL (1.6-2.6)
[2018-05-07 01:00] LABS: Troponin I 0.05 ng/mL (< 0.04)
[2018-05-07] MEDS: 0.9 % Sodium Chloride 1,000 ML IVC SCH (05:11)
[2018-05-07] MEDS: *HR* Heparin 5,000 UNIT/ML VIAL SQ SCH ×3 (05:15→21:36)
[2018-05-07 06:23] LABS: Calcium 8.4 mg/dL (8.6-10.3); Potassium 5.1 mEq/L (3.5-5.1)
[2018-05-07] MEDS: Insulin LISPRO 300 UNITS/3 ML VIAL SQ SCH ×4 (07:24→21:38)
[2018-05-07] MEDS: Aspirin 325 MG TABLET PO SCH (07:40)
[2018-05-07] MEDS: Insulin DETEMIR 100 UNIT/ML X5UNITS SQ SCH ×2 (07:40→21:36)
--- NOTE | 2018-05-07 09:37 | Internal Med Progress Note ---
<Rikki Rivas - Last Filed: 05/07/18 15:37> Hospitalist Progress Note - Encounter Date of Encounter: 05/07/18 Time of Encounter: 09:34 - Subjective Interval History: Patient is awake and lying in bed. Patient states left sided abdominal pain has improved. Patient denies any fever, nausea, SOA, hematuria, increased urinary frequency, increased urinary urgency - Exam Vitals: Temp Pulse Resp BP Pulse Ox 99.3 F 76 20 137/83 92 05/07/18 07:03 05/07/18 07:03 05/07/18 07:03 05/07/18 07:03 05/07/18 07:45 Exam: Head: Normocephalic, atraumatic ENT: Mucous membranes dry Neck: supple, trachea midline. No tenderness Respiratory: CTA bilaterally. No rhonchi, rales, wheezes Cardiovascular: RRR. No murmurs, rubs, gallops GI: normal bowel sounds all 4 quadrants. soft, Mild tenderness on left side of abdomen. extremities: +1 pedal edema, warm, radial pulses palpable bilaterally. Venous stasis changes in LE's. Back: No CVA tenderness on left or right Neuro: A & O x3. UE and LE strength 5/5. Skin: dry, warm, intact. Venous stasis changes B/L lower extremitites - Assessment and Plan (1) Abdominal pain Current Visit: Yes Status: Acute Assessment and Plan: CT/CT abd pelvis wo no iv no oral IMPRESSION: 4.7 cm indeterminate splenic lesion. -Continue monitoring and continue PRN pain medications. (2) Acute kidney injury superimposed on chronic kidney disease Current Visit: Yes Status: Acute Assessment and Plan: -ROMARIO likely due to CKD and home KAUSHIK-I use. -Continue to hold lisinopril -continue monitoring and avoid nephrotoxic medications -nephrology following (3) Acute respiratory failure Current Visit: Yes Status: Acute Assessment and Plan: 88% O2 saturation noted by respiratory at night, hypoxemic, respiratory distressed resolved (4) Elevated troponin Current Visit: Yes Status: Acute Assessment and Plan: initial troponin 0.05 on 05/06, troponin 0.05 on 05/07 -no chest pain, likely due to CKD stage 4. -New line echo pending to rule out wall motion abnormalities -EKG shows no signs of ischemia (5) CAD (coronary artery disease) Current Visit: No Status: Chronic Assessment and Plan: Previous CABG Continue home aspirin and atorvastatin 80mg (6) CKD stage 4 due to type 2 diabetes mellitus Current Visit: No Status: Chronic Assessment and Plan: Patient was previously on dialysis 2 years ago Nephro diet Patient follows with nephro as outpatient Nephrology following (7) DM type 2 (diabetes mellitus, type 2) Current Visit: No Status: Chronic Assessment and Plan: 01/25/2018 A1c of 9.5 Administer sliding scale insulin and basal insulin ACHS blood glucose monitoring before and after meals (8) History of coronary artery bypass graft Current Visit: No Status: Chronic (9) Morbid obesity with BMI of 45.0-49.9, adult Current Visit: Yes Status: Chronic Assessment and Plan: BMI 48.8 Lifestyle modifications (10) Obstructive sleep apnea Current Visit: Yes Status: Chronic Assessment and Plan: Use BI-PAP when sleeping (11) DVT prophylaxis Current Visit: No Status: Acute Assessment and Plan: Heparin subQ 5,000 units Q8HR - Time Spent with Patient Total time spent is greater than 50% in coordination of care (as documented) at patient's floor/unit and/or counseling patient: Internal Medicine: Result - Labs CBC & Chem 7: 05/07/18 00:20 05/07/18 00:20 Labs: Short CBC 05/06/18 05/07/18 Range/Units 11:41 00:20 WBC 9.6 8.0 (4.3-11.1) K/mcL Hgb 13.8 12.8 L (12.9-16.9) g/dL Hct 44.0 42.3 (37.5-50.1) % Plt Count 157 136 L (140-400) K/mcL Neutrophils # 7.0 5.6 (1.6-8.9) K/mcL BMP 05/06/18 05/07/18 11:41 00:20 Sodium 139 140 Potassium 5.3 H 5.1 Chloride 106 109 H Carbon Dioxide 23 22 L BUN 90 H 87 H Creatinine 3.04 H 3.07 H Glucose 172 H 173 H Calcium 9.3 8.4 L Cardiac Enzymes 05/06/18 05/06/18 05/07/18 Range/Units 11:41 17:57 00:20 Troponin I 0.05 H* 0.05 H* 0.05 H* (< 0.04) ng/mL Liver Function 05/06/18 Range/Units 11:41 Total Bilirubin 0.5 (0.3-1.0) mg/dL Direct Bilirubin 0.1 (0.0-0.2) mg/dL AST 11 L (13-39) Units/L ALT 13 (7-52) Units/L Alkaline Phosphatase 100 (34-104) Units/L Albumin 3.5 (3.5-5.7) g/dL Urine 05/06/18 Range/Units 11:53 Urine Color Yellow (Yellow) Urine Clarity Clear (Clear) Urine pH 5.5 (5.0-8.0) pH Units Ur Specific [place] 1.015 (1.010-1.025) Urine Protein >=300 H (Neg-Trace) mg/dL Urine Glucose (UA) 250 H (Normal) mg/dL - ABG Interpretation ABG results: PT/INR, D-dimer PT 11.1 Seconds (9.4-12.1) 05/07/18 00:20 - Impressions Impressions Abdomen/Pelvis CT 05/06/18 11:28 IMPRESSION: 1. 4.7 cm indeterminate splenic lesion. Recommend further evaluation with nonemergent MRI of the abdomen with and without contrast. D/ / Hayder Holloway MD / Hayder Holloway MD Interpreting Provider: Hayder Holloway MD Chest X-Ray 05/06/18 12:35 IMPRESSION: 1. No acute abnormality. D/ / Hayder Holloway MD / Hayder Holloway MD Interpreting Provider: Hayder Holloway MD Consult Discharge Plan - Plan Referrals: Justina Schwartz CNP [Primary Care Provider] - 05/18/18 1:00 pm <Sam Singletary - Last Filed: 05/07/18 17:32> Hospitalist Progress Note - Encounter Date of Encounter: 05/07/18 - Exam Vitals: Temp Pulse Resp BP Pulse Ox 97.8 F 75 19 169/94 93 05/07/18 15:48 05/07/18 15:48 05/07/18 15:48 05/07/18 15:48 05/07/18 15:48 - Assessment and Plan (1) Abdominal pain Current Visit: Yes Status: Acute (2) Acute renal failure Current Visit: Yes Status: Acute (3) CKD stage 4 due to type 2 diabetes mellitus Current Visit: Yes Status: Chronic (4) Nonischemic cardiomyopathy Current Visit: No Status: Chronic (5) Splenic lesion Current Visit: Yes Status: Acute (6) Morbid obesity with BMI of 45.0-49.9, adult Current Visit: Yes Status: Chronic (7) Obstructive sleep apnea Current Visit: Yes Status: Chronic (8) Peripheral vascular disease Current Visit: No Status: Chronic (9) CAD (coronary artery disease) Current Visit: No Status: Chronic - Time Spent with Patient Total time spent is greater than 50% in coordination of care (as documented) at patient's floor/unit and/or counseling patient: Internal Medicine: Result - Labs CBC & Chem 7: 05/07/18 00:20 05/07/18 00:20 Labs: Short CBC 05/07/18 Range/Units 00:20 WBC 8.0 (4.3-11.1) K/mcL Hgb 12.8 L (12.9-16.9) g/dL Hct 42.3 (37.5-50.1) % Plt Count 136 L (140-400) K/mcL Neutrophils # 5.6 (1.6-8.9) K/mcL BMP 05/07/18 00:20 Sodium 140 Potassium 5.1 Chloride 109 H Carbon Dioxide 22 L BUN 87 H Creatinine 3.07 H Glucose 173 H Calcium 8.4 L Cardiac Enzymes 05/06/18 05/07/18 Range/Units 17:57 00:20 Troponin I 0.05 H* 0.05 H* (< 0.04) ng/mL - ABG Interpretation ABG results: PT/INR, D-dimer PT 11.1 Seconds (9.4-12.1) 05/07/18 00:20 - Impressions Impressions Retroperitoneum Ultrasound 05/07/18 14:00 IMPRESSION: No hydronephrosis. Mild urinary bladder wall thickening, present on previous CT imaging. D/ / Alfredo Sanchez MD / Alfredo Sanchez MD Interpreting Provider: Alfredo Sanchez MD - Attending Attestation The history, physical exam, and medical decision making was performed by the medical student either while I was physically present and actively involved or I personally re-performed the exam and medical decision making. I have verified the accuracy of the medical student's documentation with regards to the history, physical exam findings, and medical decision making on 05/07/18. Mr Everett is currently in observation for acute L side pain and worsening renal function. He remains moderate to high risk. Mr Everett is up in chair. He needed oxygen earlier for saturation of 88% on room air. Now he is doing better. No fever or chills. Pain is still present but controlled with meds. Exam alert Comfortable mucus membranes dry Heart not tachy No wheeze abd soft Chronic venous stasis changes No rash Moves all extremities Normocephalic I/P 1. L side pain - persists. Continue meds 2. ROMARIO on CKD - appreciate nephrology assistance 3. Morbid obesity 4. DM - continue coverage Further diagnoses and plan as above. <Rikki Rivas - Last Filed: 05/07/18 15:37> (1) Abdominal pain Qualifiers: Abdominal location: left lower quadrant Qualified Code(s): R10.32 - Left lower quadrant pain (5) CAD (coronary artery disease) Qualifiers: Coronary Disease-Associated Artery/Lesion type: [place] artery [place] vs. transplanted heart: [place] heart Associated angina: without angina Qualified Code(s): I25.10 - Atherosclerotic heart disease of [place] coronary artery without angina pectoris (7) DM type 2 (diabetes mellitus, type 2) Qualifiers: Diabetes mellitus complication status: with circulatory complication Diabetes mellitus complication detail: with other circulatory complications Qualified Code(s): E11.59 - Type 2 diabetes mellitus with other circulatory complications <Sam Singletary - Last Filed: 05/07/18 17:32> (1) Abdominal pain Qualifiers: Abdominal location: left lower quadrant Qualified Code(s): R10.32 - Left lower quadrant pain (2) Acute renal failure Qualifiers: Acute renal failure type: unspecified Qualified Code(s): N17.9 - Acute kidney failure, unspecified (9) CAD (coronary artery disease) Qualifiers: Coronary Disease-Associated Artery/Lesion type: [place] artery [place] vs. transplanted heart: [place] heart Associated angina: without angina Qualified Code(s): I25.10 - Atherosclerotic heart disease of [place] coronary artery without angina pectoris
--- NOTE | 2018-05-07 10:47 | Nephrology Consult Note ---
Addendum entered and electronically signed by Ron Vasques DO 05/07/18 16:00: I have personally performed a face to face evaluation on this patient. I have reviewed and agree with the care plan. History and Exam by me shows: 58 y/o morbidly obese WM with a pmh of CKD stage IV who presented with abd pain and was also noted to have worsened SCr/eGFR. This may be an ROMARIO on CKD IV or it could represent CKD progression. Meanwhile, I agree with gentle IVF for presumed prerenal ROMARIO and to follow a renal protective strategy. No urgent HD indicated today. Will continue to follow with you. Thank you for consulting the [facility]. Original Note: Date of Encounter: 05/07/18 Time of Encounter: 10:41 Assessment and Plan (1) Acute kidney injury superimposed on chronic kidney disease Current Visit: Yes Status: Acute Unsure if this is ROMARIO or progression of CKD. Baseline GFR IS 25-26. GFR today is 21. Continue IVF. Avoid nephrotoxins and renal dose. Strict I/O Retroperitoneal US ordered. Serum and urine studies ordered. (2) Splenic lesion Current Visit: Yes Status: Acute Per primary. (3) Morbid obesity with BMI of 45.0-49.9, adult Current Visit: Yes Status: Chronic Per the record. History of Present Illness - Reason for Consult Consult date: 05/07/18 Acute Kidney Injury, Chronic Kidney Disease Requesting physician: Sam Singletary - Chief Complaint possible kidney stone - History of Present Illness Mr. Everett is a 58 year old male who presented to ED with left sided pain that started early in the morning of 05/06/18. PMH: cardiomyopathy, coronary artery disease, diabetes, hyperlipidemia, hypertension, CKD 4, and kidney stones. He does see Dr. Vasquez in the office and he tells me his GFR usually fluctuates between 25-26. Unsure if this is ROMARIO or progression of CKD. ROMARIO workup ordered as well as retroperitoneal US. He denies any chronic use of Nsaids. He denies poor PO intake at home. Avoid nephrotoxins and renal dose all medications. He is a former smoker, denies etoh or illicit drug use. Past Med Surg Social Fam HX - Past Medical History Medical history: arthritis, cardiomyopathy, coronary artery disease, diabetes, hyperlipidemia, hypertension, kidney stones, peripheral artery disease, renal disease, other Additional medical history: polyneuropathy. gout. renal failure. CHF Psychiatric history: no psych history - Past Surgical History Surgical History: angioplasty/stent, cataract, coronary bypass (CABG), other Additional surgical history: 2 cardiac stents. foot - Social History Smoking Status: Former smoker Smokeless Tobacco Status: No Alcohol use: none Drug use: none - Family History Father Adopted: No Living Status: Hx Family Cardiac Disorders: Yes Hx Family Respiratory Disorders: No Hx Family Cancer: No Hx Family GI Disorders: No Hx Family Endocrine Disorder: Yes Hx Family Neuromuscular Disorders: No Hx Family Neurologic Disorders: No Hx Family HEENT Disorders: No Hx Family Autoimmune Disorders: No Mother Living Status: Hx Family Cardiac Disorders: Yes Hx Family Respiratory Disorders: Yes Hx Family Endocrine Disorder: Yes Medications and Allergies Insulin Glargine,Hum.rec.anlog [Lantus Solostar] 50 unit SQ BID 12/13/14 [History] Insulin LISPRO [Humalog Kwikpen U-200] 6 - 20 unit SQ TIDAC 12/13/14 [History] Allopurinol [Zyloprim 300 MG] 300 mg PO DAILY 05/06/18 [History] Aspirin [Lo-Dose Aspirin EC] 81 mg PO DAILY 05/06/18 [History] Atorvastatin [Lipitor] 40 mg PO HS 05/06/18 [History] Carvedilol [Coreg] 25 mg PO BID 05/06/18 [History] Ergocalciferol (VITAMIN D2) [Vitamin D2] 50,000 unit PO MO 05/06/18 [History] Furosemide [Lasix] 40 mg PO BID 05/06/18 [History] Lisinopril 2.5 mg PO DAILY 05/06/18 [History] Allergy/AdvReac Type Severity Reaction Status Date / Time ceftazidime Allergy Hives Verified 12/13/14 10:30 Cephalosporins Allergy Hives Verified 12/13/14 10:30 sulfamethoxazole AdvReac poor Verified 04/24/15 11:21 [From Bactrim] kidney function trimethoprim [From Bactrim] AdvReac poor Verified 04/24/15 11:21 kidney function Review of Systems All Systems review (narrative): The remainder of the systems are negative. Constitutional: no chills, no fatigue, no fever(s) Cardiovascular: no chest pain, no dyspnea Respiratory: no cough Gastrointestinal: no abdominal pain, no diarrhea, no nausea, no vomiting Genitourinary Male: flank pain (Left sided flank pain.), no hematuria Exam - Vital Signs Vital signs: Initial Vital Signs Temp Pulse Resp BP Pulse Ox 97.7 F 82 22 115/74 98 05/06/18 11:14 05/06/18 11:14 05/06/18 11:14 05/06/18 11:14 05/06/18 11:14 Vital Signs - Last 8 Hours Temp Pulse Resp BP Pulse Ox 05/07/18 07:45 92 05/07/18 07:03 99.3 F 76 20 137/83 92 05/07/18 04:24 98.2 F 79 18 116/69 96 Intake and Output 05/06/18 05/07/18 05/07/18 23:59 07:59 15:59 Intake Total 0 / 0 1000 / 1000 Output Total 625 / 625 925 / 925 Balance -625 / -625 75 / 75 Intake: IV Fluids 1000 / 1000 0.9 % Sodium Chloride 1,000 ML 1000 / 1000 @ 100 mls/hr IVC .Q10H CHIP Rx#: [id number] Oral 0 / 0 Output: Urine 625 / 625 925 / 925 Other: Weight 149.8 kg Blood Glucose* 225 124 - General Appearance General appearance: well-developed, well-nourished EENT: ATNC, hearing intact, vision intact Neck: supple Respiratory: clear Cardiology: no edema, normal S1, normal S2 Gastrointestinal: normoactive bowel sounds, no tenderness, no guarding Integumentary: no rash, warm and dry Neurologic: alert and oriented x3 Musculoskeletal: no deformities, no erythema Psychiatric: mood/affect appropriate, cooperative Results - Lab Results 05/07/18 00:20 05/07/18 00:20 Most recent lab results Calcium 8.4 mg/dL (8.6-10.3) L 05/07/18 00:20 Magnesium 1.8 mg/dL (1.6-2.6) 05/07/18 00:20 Consult Discharge Plan - Plan Referrals: Justina Schwartz CNP [Primary Care Provider] - 05/18/18 1:00 pm
[2018-05-07 11:00] LABS: Uric Acid 7.1 mg/dL (2.3-7.6)
[2018-05-07 17:02] LABS: Sodium, Urine 58.3 mEq/L
[2018-05-07 17:30] LABS: Protein/Creatinine Ratio,Urine 3.32 mg/mg (0.00-0.20)
[2018-05-08 04:31] LABS: Basophils # 0.1 K/mcL (0.0-0.2); Basophils % 0.7 %; Eosinophils # 0.5 K/mcL (0.0-0.6); Eosinophils % 6.7 %; Hemoglobin 13.1 g/dL (12.9-16.9); Immature Granulocytes % 0.4 % (0-4); Lymphocytes # 1.1 K/mcL (0.6-4.6); Mean Corpuscular HGB Conc 30.5 g/dL (31.6-35.5); Mean Corpuscular Hemoglobin 25.3 pg (28.0-33.3); Mean Platelet Volume 10.9 fL (9.4-12.4); Monocytes # 0.8 K/mcL (0.0-1.3); Monocytes % 10.6 %; Neutrophils # 4.9 K/mcL (1.6-8.9); Platelet Count 138 K/mcL (140-400); Red Blood Count 5.18 M/mcL (4.19-5.50); Red Cell Distribution Width 15.6 % (11.5-14.5); Segmented Neutrophils % 66.6 %
[2018-05-08 04:52] LABS: Calcium 8.5 mg/dL (8.6-10.3); Phosphorous 4.2 mg/dL (2.7-4.5)
[2018-05-08] MEDS: *HR* Heparin 5,000 UNIT/ML VIAL SQ SCH (05:07)
[2018-05-08 07:50] VITALS: BP 162/90
[2018-05-08] MEDS: Insulin LISPRO 300 UNITS/3 ML VIAL SQ SCH (08:05)
[2018-05-08] MEDS: Aspirin 325 MG TABLET PO SCH (08:06)
[2018-05-08] MEDS: Insulin DETEMIR 100 UNIT/ML X5UNITS SQ SCH (08:06)
--- NOTE | 2018-05-08 08:25 | Discharge Summary ---
<Abdiaziz Ramirez - Last Filed: 05/08/18 10:24> - NOTES TO OUTPATIENT PROVIDER Notes to Outpatient Provider: Admitted with abdominal pain and found to have ROMARIO vs worsening of CKD. Labs have been encouraging and he has returned to basline Cr with fluids. Abdominal pain improving, found to have splenic lesion. Patient informed. Date of Encounter: 05/08/18 Time of Encounter: 08:24 - Discharge Diagnosis (1) Abdominal pain Priority: Primary Status: Acute Qualifiers: Abdominal location: left lower quadrant Qualified Code(s): R10.32 - Left lower quadrant pain (2) Acute kidney injury superimposed on chronic kidney disease Priority: Primary Status: Acute (3) Acute respiratory failure Priority: Secondary Status: Resolved Qualifiers: Respiratory failure complication: hypoxia Qualified Code(s): J96.01 - Acute respiratory failure with hypoxia (4) Elevated troponin Priority: Secondary Status: Acute (5) Splenic lesion Priority: Secondary Status: Chronic (6) CKD stage 4 due to type 2 diabetes mellitus Priority: Secondary Status: Chronic (7) Morbid obesity with BMI of 45.0-49.9, adult Priority: Secondary Status: Chronic (8) Obstructive sleep apnea Priority: Secondary Status: Chronic (9) DVT prophylaxis Priority: Secondary Status: Acute Hospital course: Mr. Everett is a 58 year old male with past medical history of CAD, hypertension, diabetes, CKD stage IV presented to the emergency room with complaint of left- sided abdominal pain. He states he initially thought this was a kidney stone and has had this in the past. Vital signs at presentation were significant for a respiratory rate of 22, all was within normal limits. Laboratory results on presentation were significant for a potassium of 5.3, BUNs/creatinine of 90/3.04 and a troponin 0.05. Urine studies were obtained and showed proteinuria, and a calculated FeNa demonstrating intrinsic renal disease. Nephrology was consulted at admission. Abdominal CT scan does demonstrate a 4.7 cm splenic lesion otherwise within normal limits and no evidence of nephrolithiasis. Retroperitoneal ultrasound shows no evidence of hydronephrosis and mild urinary bladder wall thickening. Left kidney was measured to be 14.4 cm and right kidney of 9.7 cm. This case was discussed with slotter operator and he is recommen ding no further acute intervention. He was instructed to follow up with his primary care physician as well as nephrology. Incidental finding of splenic lesion of 4.7 cm was noted on CT scan which patient was informed and will follow as outpatient. Most likely source of abdominal pain at this time appears to be musculoskeletal in nature. Discharge discussed with: patient, salon sales consultant - Time Spent with Patient Total time spent providing and/or coordinating discharge services: - Discharge Medications Home Medications: RX: Insulin Glargine,Hum.rec.anlog [Lantus Solostar] 50 unit SQ BID 12/13/14 [History] RX: Insulin LISPRO [Humalog Kwikpen U-200] 6 - 20 unit SQ TIDAC 12/13/14 [History] RX: Allopurinol [Zyloprim 300 MG] 300 mg PO DAILY 05/06/18 [History] RX: Aspirin [Lo-Dose Aspirin EC] 81 mg PO DAILY 05/06/18 [History] RX: Atorvastatin [Lipitor] 40 mg PO HS 05/06/18 [History] RX: Carvedilol [Coreg] 25 mg PO BID 05/06/18 [History] RX: Ergocalciferol (VITAMIN D2) [Vitamin D2] 50,000 unit PO MO 05/06/18 [History] RX: Furosemide [Lasix] 40 mg PO BID 05/06/18 [History] RX: Lisinopril 2.5 mg PO DAILY 05/06/18 [History] Allergies/Adverse Reactions: Allergy/AdvReac Type Severity Reaction Status Date / Time ceftazidime Allergy Hives Verified 12/13/14 10:30 Cephalosporins Allergy Hives Verified 12/13/14 10:30 sulfamethoxazole AdvReac poor Verified 04/24/15 11:21 [From Bactrim] kidney function trimethoprim [From Bactrim] AdvReac poor Verified 04/24/15 11:21 kidney function Date of admission: 05/06/18 14:34 Primary care physician: Justina Schwartz CNP Consults: 05/07/18 06:24 Consult to Nephrology [CONS] Routine Consulting Provider: Kidney Francisca/DAVID/SONJA/TIN Reason for Consult: ROMARIO on CKD IV, previously on HD Time Notified: 07:00 Call Completed: Yes Discharging clinician: Abdiaziz Ramirez Anticipated date of discharge: 05/08/18 - Constitutional Vitals: Temp Pulse Resp BP Pulse Ox 97.8 F 77 18 162/90 96 05/08/18 07:49 05/08/18 07:49 05/08/18 07:49 05/08/18 07:49 05/08/18 07:49 General appearance: Present: mild distress, A&O X 3, morbidly obese, pleasant, answers questions appropriately Exam: Gen.: Vitals noted. No acute distress. AAOx3, sitting up comfortably bedside HEENT: PERRL/EOMI, oropharynx clear, Normocephalic, atraumatic, MMM Cardiac: RRR, no murmur, +S1/S2, trace BLE edema Pulmonary: CTA bilaterally, no wheezes, rales or rhonchi, equal chest expansion, unlabored breathing Abdomen: soft, minimally tender to left lower quadrant, BS noted, no guarding, no palpable HSM Back: Nontender throughout. Skin: warm and dry, no visible lesions. MSK: ROM not assessed, no joint swelling noted, gait no assessed while in bed. Non tender calf or clubbing Neuro: A&Ox3, moves all extremities, no focal deficits Psych: Appropriate mood and behavior, AOx3 - Patient Status Disposition: Home, Self-Care Condition: Fair Functional capacity at discharge: independent ambulation Overall status at discharge: patient is progressing back to baseline - Discharge Instructions Follow Up With: Justina Schwartz CNP [Primary Care Provider] - 05/18/18 1:00 pm Ron Vasques DO [Partnered Physician] - (Appointment request sent. Office will call you to schedule.) Additional Instructions: Please follow up with her primary care physician within 3-5 days and also follow up with her slotter operator. Please adhere to a renal diet low in potassium. Will avoid NSAIDs for pain control. - Diet and Activity Activity: increase activity as tolerated, return to work once cleared by your PCP/specialist, resume usual activities as tolerated Diet: low salt diet, other (renal diet, low K) <Sam Singletary - Last Filed: 05/08/18 17:07> Date of Encounter: 05/08/18 - Discharge Diagnosis (1) Abdominal pain Priority: Secondary Status: Acute Qualifiers: Abdominal location: left lower quadrant Qualified Code(s): R10.32 - Left lower quadrant pain (2) Acute renal failure Priority: Primary Status: Suspected Qualifiers: Acute renal failure type: with acute tubular necrosis Qualified Code(s): N17.0 - Acute kidney failure with tubular necrosis (3) CKD stage 4 due to type 2 diabetes mellitus Status: Chronic (4) Nonischemic cardiomyopathy Priority: Secondary Status: Chronic (5) Splenic lesion Status: Chronic (6) Morbid obesity with BMI of 45.0-49.9, adult Status: Chronic (7) Obstructive sleep apnea Status: Chronic (8) Peripheral vascular disease Priority: Secondary Status: Chronic (9) CAD (coronary artery disease) Priority: Secondary Status: Chronic Qualifiers: Coronary Disease-Associated Artery/Lesion type: [place] artery [place] vs. transplanted heart: [place] heart Associated angina: without angina Qualified Code(s): I25.10 - Atherosclerotic heart disease of [place] coronary artery without angina pectoris Hospital course: Mr. Everett is a 58 year old male - Time Spent with Patient Total time spent providing and/or coordinating discharge services: Date of admission: 05/06/18 14:34 Primary care physician: Justina Schwartz CNP Consults: 05/07/18 06:24 Consult to Nephrology [CONS] Routine Consulting Provider: Kidney Francisca/DAVID/SONJA/TIN Reason for Consult: ROMARIO on CKD IV, previously on HD Time Notified: 07:00 Call Completed: Yes - Constitutional Vitals: Temp Pulse Resp BP Pulse Ox 97.8 F 77 18 162/90 96 05/08/18 07:49 05/08/18 07:49 05/08/18 07:49 05/08/18 07:49 05/08/18 07:49 - Attending Attestation I examined this patient and my medical decision-making was reviewed with the Resident Physician on 05/08/18. I agree with the documented findings, disposition and treatment plan as described except to the extent set forth below. Mr Everett has been in observation due to L side pain and acute on chronic renal failure. He still has some discomfort on L side worse with cough. His renal function has improved today. He is now afebrile and ready for discharge home. Exam alert Comfortable Mucus membranes dry Heart not tachy. No wheeze abd soft Plan D/C home today.
--- NOTE | 2018-05-08 09:48 | Nephrology Progress Note ---
Date of Encounter: 05/08/18 Time of Encounter: 08:30 - Assessment and Plan (1) Acute kidney injury superimposed on chronic kidney disease Current Visit: Yes Status: Acute Improved back to his baseline of CKD stage IV, with GFRs near 25-26. No indications for dialysis. Continue to follow a renal protective strategy: Avoid nephrotoxins and renal dose. Strict I/O Retroperitoneal US ordered: no hydronephrosis, and though is right kidney was slightly smaller than the left, he is not overtly hypertensive and so I do not suspect active RAUL, especially with improving SCr. So I do not recommend checking a renal artery doppler. Okay discharge and follow up in the clinic. He has been followed in the clinic by Dr. Vasquez. (2) Morbid obesity with BMI of 45.0-49.9, adult Current Visit: Yes Status: Chronic I recommended lifestyle modifications to help delay CKD progression such as we ight loss, diet, and etc. (3) CKD stage 4 due to type 2 diabetes mellitus Current Visit: Yes Status: Chronic Baseline. See above. (4) Hyperkalemia Current Visit: No Status: Acute Acute on chronic. I counseled him for >50% of the approx 20 min encounter on re nal dietary restrictions including K+ and steps to follow to delay CKD progression. Subjective Principal diagnosis: ROMARIO on CKD Interval history: Pt was s/e earlier today. He reported feeling better and did not affirm active N/V or D. He said his legs are no more swollen than his usual. He still voiced having some left sided discomfort with deep breathing or coughing. He denied seeing visible blood in the urine. Objective - Vital Signs Vital signs: Vital Signs Temp Pulse Resp BP Pulse Ox 05/08/18 07:49 97.8 F 77 18 162/90 96 05/08/18 03:25 98.8 F 80 17 130/84 93 05/08/18 00:24 98.7 F 71 17 137/85 93 05/07/18 20:12 99 F 77 17 149/88 92 05/07/18 15:48 97.8 F 75 19 169/94 93 05/07/18 10:42 97.9 F 68 19 147/86 98 Intake and Output 05/07/18 05/08/18 05/08/18 23:59 07:59 15:59 Intake Total 400 / 400 120 / 120 Output Total 800 / 800 Balance 400 / 400 -800 / -800 120 / 120 Intake: Oral 120 / 120 Free Water 400 / 400 Output: Urine 800 / 800 Other: Meal Breakfast Percent of Meal Consumed 90% Blood Glucose* 235 135 - General Appearance General appearance: Present: well-developed, well-nourished, appears started age, obese EENT: Present: ATNC, PERRL, mucous membranes moist Respiratory: Present: clear Cardiology: Present: edema (minimial pretibial pitting edema b/l (the pt said this was his baseline). ), regular rate, regular rhythm, normal S1, normal S2 Gastrointestinal: Present: normoactive bowel sounds, no tenderness, obese Integumentary: Present: warm and dry Neurologic: Present: no focal deficit, no asterixis, alert and oriented x3 Musculoskeletal: Present: no deformities, no erythema, no cyanosis Psychiatric: Present: mood/affect appropriate, cooperative - Lab 05/08/18 03:56 05/08/18 03:56 Most recent lab results Calcium 8.5 mg/dL (8.6-10.3) L 05/08/18 03:56 Phosphorus 4.2 mg/dL (2.7-4.5) 05/08/18 03:56 Magnesium 1.8 mg/dL (1.6-2.6) 05/07/18 00:20 Urine Creatinine 99 mg/dL 05/07/18 16:30 Urine Sodium 58.3 mEq/L 05/07/18 16:30 Urine Total Protein 329 mg/dL (1-14) H 05/07/18 16:30 Consult Discharge Plan - Plan Additional Instructions: Please follow up with her primary care physician within 3-5 days and also 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 Please adhere to a renal diet low in potassium. Will avoid NSAIDs for pain control. Referrals: Justina Schwartz CNP [Primary Care Provider] - 05/18/18 1:00 pm Ron Vasques DO [Partnered Physician] - (Appointment request sent. Office will call you to schedule.)
--- NOTE | 2018-05-09 05:22 | Electrocardiograph Report ---
[facility] Test Date: 2018-05-06 Pat Name: Gonzalo Everett Department: [id number] Room: 2A44 Gender: M Ssn/Ssbn Assistant Navigator: : 1960 Requested By: Abraham Brown Order Number: [id number] Reading MD: Clarisse Ramírez Measurements Intervals Ayden Rate: 77 P: 43 TX: 164 QRS: 256 QRSD: 131 T: 74 QT: 418 QTc: 474 Interpretive Statements Sinus rhythm Nonspecific IVCD with LAD Anterior infarct, old POOR R WAVE PROGRESSION Electronically Signed On 05-09-2018 5:20:48 EST by Clarisse Ramírez
== END 2018-05-08 11:39 | disposition home or self-care (01) ==
LOC: EMEROOARM 11:12 → 2ANU 11:12 → SUATTDRO 14:34 → 2ANU 15:00
PROVIDERS: ADMIT Internal Medicine; ATTEND Internal Medicine